=== PATIENT | male | born 1965 | race Caucasian/White ===

== ENCOUNTER 2017-05-06 07:30 | Day surgery (SDC) | payer BC ==
[~2017-05-06 07:30] MED LIST: DIPHENHYDRAMINE HCL 50 MG/ML VIAL ONE; EPINEPHRINE INJ 1 MG/10 ML DISP.SYRIN ONE; FLUMAZENIL INJ 0.5 MG/5 ML VIAL ONE; GLUCAGON,HUMAN RECOMB 1 MG INJ ONE; NALOXONE HCL INJ/PF 0.4 MG/1 ML SDV ONE; ONDANSETRON HCL INJ/PF 4 MG/2 ML SDV ONE
[2017-05-06] MEDS: MIDAZOLAM 2 MG/2 ML INJ ONE ×2 (08:14→08:22)
[2017-05-06] MEDS: FENTANYL CITRATE INJ/PF 100 MCG/2 ML AMPUL ONE ×2 (08:16→08:20)
--- NOTE | 2017-05-06 08:43 | Operative Report ---
Operative Report DATE OF SURGERY: 05/06/17 Operative Report: The risks, benefits and alternatives of the procedure including risks of bleeding, perforation requiring surgery explained to the patient in detail and informed consent was obtained. Patient was taken back to the endoscopy suite and placed in the left, lateral decubital position. Timeout was called. Conscious sedation medications are provided. A rectal examination was done which did not reveal any masses, tears or fissures. An Olympus videoscope is inserted into the patient's rectum. The scope was then carefully advanced all the way to the cecum. The cecum was identified by the usual anatomic landmarks of the ileocecal valve as well as the appendiceal orifice. Photodocumentation was obtained. Prep is adequate in some places. The scope was then sequentially pulled back. Ovarian segments of the colon including the ascending colon, hepatic flexure, transverse colon, splenic flexure, descending colon and finally to the rectosigmoid portions of the colon. Retroflexion maneuver was performed. PREOPERATIVE DIAGNOSIS: Colorectal cancer screening POSTOPERATIVE DIAGNOSIS: No polyps polyps visualized in the areas that could be seen. No mention of the presence or absence of polyps can be made in various that have stool obstructing the lumen. OPERATION: Diagnostic colonoscopy SURGEON: KIMBERLY STARR ANESTHESIA: Moderate Sedation - 4 mg of Versed, 100 mcg of fentanyl. Conscious sedation monitoring for 30 minutes. TISSUE REMOVED OR ALTERED: None. COMPLICATIONS: 9. ESTIMATED BLOOD LOSS: None. INTRAOPERATIVE FINDINGS: As noted above. PROCEDURE: Patient tolerated procedure well. No immediate postprocedure complications are noted. Patient discharged in good condition. Discharge date 05/06/2017. Discharge diet: Regular. Discharge activity: Regular. 2-3 week follow-up to discuss findings. Marsh is a normal screening, the fact that there are some areas of the colon could not be visualized adequately. I would recommend a follow-up colonoscopy in 3 years.
[2017-05-06 09:45] VITALS: BP 137/83
== END 2017-05-06 09:35 | disposition home or self-care (01) ==
LOC: END 07:30
PROVIDERS: ATTEND Internal Medicine Gastroenterology
PROC: 0DJD8ZZ Inspection of Lower Intestinal Tract, Via Natural or Artificial Opening Endoscopic (ICD-10-PCS; principal; 2017-05-06 08:00)
DX: Z12.11 Encounter for screening for malignant neoplasm of colon (principal); E78.5 Hyperlipidemia, unspecified; K21.9 Gastro-esophageal reflux disease without esophagitis; G47.30 Sleep apnea, unspecified; E66.9 Obesity, unspecified; Z88.0 Allergy status to penicillin; Z79.899 Other long term (current) drug therapy; Z88.8 Allergy status to other drugs, medicaments and biological substances; Z68.31 Body mass index [BMI] 31.0-31.9, adult
CPT/HCPCS: 45378; J2250; J3010; J0171; J1200; J1610; J2310; J2405; J3490

== ENCOUNTER 2019-10-17 17:03 | Emergency (ER) | payer BC ==
--- NOTE | 2019-10-17 18:42 | RADIOLOGY REPORT (SQ) ---
EXAM DESCRIPTION: CHEST SINGLE VIEW IMAGES COMPLETED DATE/TIME: 10/17/2019 5:22 pm REASON FOR STUDY: sob COMPARISON: Chest radiograph 02/20/2016 EXAM PARAMETERS: NUMBER OF VIEWS: One view. TECHNIQUE: Single frontal radiographic view of the chest acquired. RADIATION DOSE: NA LIMITATIONS: None. FINDINGS: LUNGS AND PLEURA: No opacities, masses or pneumothorax. No pleural effusion. MEDIASTINUM AND HILAR STRUCTURES: No masses. Contour normal. HEART AND VASCULAR STRUCTURES: Heart normal in size. Normal vasculature. BONES: No acute findings. HARDWARE: None in the chest. OTHER: No other significant finding. IMPRESSION: NO ACUTE RADIOGRAPHIC FINDING IN THE CHEST. TECHNICAL DOCUMENTATION: JOB ID: [id number] [employer]- All Rights Reserved Reading location - IP/workstation name: [email or web address]
[2019-10-17 18:45] LABS: ABSOLUTE EOSINOPHILS # (AUTO) 0.1 10^3/uL (0.0-0.6); ABSOLUTE LYMPHOCYTES (AUTO) 1.7 10^3/uL (0.5-4.7); ABSOLUTE MONOCYTES (AUTO) 1.2 10^3/uL (0.1-1.4); ABSOLUTE NEUT (AUTO) 8.5 10^3/uL (1.7-8.2); BASOPHILS % (AUTO) 0.3 % (0-2); HEMOGLOBIN 16.2 g/dL (13.5-17.0); LYMPHOCYTES % (AUTO) 14.4 % (13-45); MEAN CORPUSCULAR HEMOGLOBIN 30.7 pg (27.0-33.4); MEAN CORPUSCULAR HGB CONC 33.7 g/dL (32.0-36.0); MEAN CORPUSCULAR VOLUME 91 fl (80-97); MONOCYTES % (AUTO) 10.6 % (3-13); PLATELET COUNT 163 10^3/uL (150-450); RED BLOOD COUNT 5.26 10^6/uL (4.35-5.55); RED CELL DISTRIBUTION WIDTH 13.2 % (11.5-14.0); SEGMENTED NEUTROPHILS % (AUTO) 73.7 % (42-78); TOTAL CELLS COUNTED % (AUTO) 100 %; WHITE BLOOD COUNT 11.6 10^3/uL (4.0-10.5)
[2019-10-17 19:15] LABS: ALBUMIN 4.3 g/dL (3.5-5.0); ALKALINE PHOSPHATASE 100 U/L (38-126); ANION GAP 8 (5-19); ASPARTATE AMINO TRANSFERASE 31 U/L (17-59); BILIRUBIN,TOTAL 0.6 mg/dL (0.2-1.3); BLOOD UREA NITROGEN 22 mg/dL (7-20); CALCIUM 9.7 mg/dL (8.4-10.2); CARBON DIOXIDE 27 mmol/L (22-30); CHLORIDE 104 mmol/L (98-107); GLUCOSE 123 mg/dL (75-110); POTASSIUM 4.1 mmol/L (3.6-5.0); TOTAL PROTEIN 7.5 g/dL (6.3-8.2)
--- NOTE | 2019-10-17 19:35 | ER Document Report ---
ED General - General Chief Complaint: Pain All Over Stated Complaint: HEADACHE,FEVER,BODY PAIN,COUGH Time Seen by Provider: 10/17/19 17:43 Primary Care Provider: KAVON LINK PA-C [Primary Care Provider] - Follow up as needed Mode of Arrival: Ambulatory Information source: Patient TRAVEL OUTSIDE OF THE [place] IN LAST 30 DAYS: No - HPI Notes: Patient presents with body aches fever and chills. He states that this started yesterday. It has been intermittent. Nothing makes it better or worse. The body aches radiate throughout his body. They are moderate in intensity and an aching sensation. He states he has had a couple loose stools. No problems with urination. He has had a cough productive of some yellow-green sputum. No rashes. He states he has no known covert exposures except that a person in his office was positive several weeks ago but he did not have any direct contact with this person other than he was in an office that that person was in. He states he was not in the office at the same time as that person however. - Related Data Allergies/Adverse Reactions: bee venom protein (honey bee) Allergy (Intermediate, Verified 05/06/17 07:30) SWELL UP, HIVES Penicillins Allergy (Intermediate, Verified 05/06/17 07:30) SWELL UP, HIVES atorvastatin [From Lipitor] Adverse Reaction (Intermediate, Verified 05/06/17 07:30) muscle aches WASP VENOM Allergy (Intermediate, Uncoded 05/06/17 07:30) SWELL UP ,HIVES Past Medical History - General Information source: Patient - Social History Smoking Status: Never Smoker Frequency of alcohol use: None Drug Abuse: None - He is got fever of 100.2 Family History: Reviewed & Not Pertinent - Past Medical History Cardiac Medical History: Denies: Hx Coronary Artery Disease, Hx Heart Attack, Hx Hypertension Pulmonary Medical History: Denies: Hx Asthma, Hx Bronchitis, Hx COPD, Hx Pneumonia Neurological Medical History: Reports: Hx Migraine. Denies: Hx Cerebrovascular Accident, Hx Seizures Renal/ Medical History: Reports: Hx Kidney Stones GI Medical History: Reports: Hx Gastroesophageal Reflux Disease Musculoskeletal Medical History: Denies Hx Arthritis Psychiatric Medical History: Reports: Hx Depression Past Surgical History: Reports: Hx Cardiac Catheterization, Hx Tonsillectomy - Immunizations Hx Diphtheria, Pertussis, Tetanus Vaccination: Yes Review of Systems - Review of Systems Constitutional: Chills, Fever, Malaise, Weakness Cardiovascular: denies: Chest pain, Palpitations Respiratory: Cough. denies: Short of breath -: Yes All other systems reviewed and negative Physical Exam - Vital signs Vitals: Temp Pulse BP Pulse Ox 98.0 F 72 138/77 H 97 10/17/19 17:09 10/17/19 17:09 10/17/19 17:09 10/17/19 17:09 Interpretation: Normal - General General appearance: Appears well, Alert - HEENT Head: Normocephalic, Atraumatic Eyes: Normal Pupils: PERRL - Respiratory Respiratory status: No respiratory distress Chest status: Nontender Breath sounds: Normal Chest palpation: Normal - Cardiovascular Rhythm: Regular Heart sounds: Normal auscultation Murmur: No - Abdominal Inspection: Normal Distension: No distension Bowel sounds: Normal Tenderness: Nontender Organomegaly: No organomegaly - Back Back: Normal, Nontender - Extremities General upper extremity: Normal inspection, Nontender, Normal color, Normal ROM, Normal temperature General lower extremity: Normal inspection, Nontender, Normal color, Normal ROM, Normal temperature, Normal weight bearing. No: Sary's sign - Neurological Neuro grossly intact: Yes Cognition: Normal Orientation: AAOx4 [place] Coma Scale Eye Opening: Spontaneous Nicolas Coma Scale Verbal: Oriented [place] Coma Scale Motor: Obeys Commands [place] Coma Scale Total: 15 Speech: Normal Motor strength normal: LUE, RUE, LLE, RLE Sensory: Normal - Psychological Associated symptoms: Normal affect, Normal mood - Skin Skin Temperature: Warm Skin Moisture: Dry Skin Color: Normal Course - Re-evaluation Re-evalutation: 10/17/19 19:34 Patient presents with concerns for COVID. He states that his boss tested positive and he has been on the same office as his boss. He states he was not at the same time as his boss but he has been in the same office that his boss was in. He states he has fevers chills and a productive cough with body aches. Patient has had a COVID test sent off. The rest of his evaluation including laboratories and x-rays are unremarkable for another source of infection. He does appear to have a viral syndrome and at this time I have instructed the patient that it is presumed COVID until his test returns. He has been inst ructed to quarantine himself until his results have returned in 2 to 3 days. Patient was given instructions concerning how to practice home isolation. 10/17/19 19:40 - Vital Signs Vital signs: Temp Pulse Resp BP Pulse Ox 98.0 F 72 138/77 H 97 10/17/19 17:22 10/17/19 17:09 10/17/19 17:09 10/17/19 17:09 - Laboratory Result Diagrams: 10/17/19 18:25 10/17/19 18:25 Laboratory results interpreted by me: 10/17/19 10/17/19 18:25 18:25 WBC 11.6 H Absolute Neuts (auto) 8.5 H BUN 22 H Creatinine 1.29 H Est GFR (MDRD) Non-Af 58 L Glucose 123 H - Diagnostic Test Radiology reviewed: Image reviewed, Reports reviewed Discharge - Discharge Clinical Impression: Viral syndrome, Suspected COVID-19 virus infection Condition: Stable Disposition: HOME, SELF-CARE Instructions: Oral Narcotic Medication ([facility]), Viral Syndrome ([facility]) Additional Instructions: Please quarantine yourself until the results of your COVID test have returned. Please review handout given to you and read CDC guidelines. Prescriptions: Hydrocodone/Acetaminophen [[place] 5-325 mg Tablet] 1 tab PO Q6 PRN 3 Days #10 tablet PRN Reason: Forms: Return to Work Referrals: KAVON LINK PA-C [Primary Care Provider] - Follow up in 3-5 days (Please contact Kavon Link to arrange follow up)
[2019-10-17 20:05] VITALS: BP 141/75
== END 2019-10-17 20:05 | disposition home or self-care (01) ==
LOC: ER 17:03
DX: B34.9 Viral infection, unspecified (principal); R51 Headache; R50.9 Fever, unspecified; R19.4 Change in bowel habit; R05 Cough; R53.81 Other malaise; R53.1 Weakness; Z20.828 Contact with and (suspected) exposure to other viral communicable diseases; Z86.69 Personal history of other diseases of the nervous system and sense organs; Z91.030 Bee allergy status; Z88.0 Allergy status to penicillin; Z91.038 Other insect allergy status
CPT/HCPCS: 99283; 36415; 85025; 87635; 80053; 71045; C9803

== ENCOUNTER 2020-05-14 08:22 | Emergency (ER) | payer BC ==
--- NOTE | 2020-05-14 09:57 | ER Document Report ---
ED General - General Chief Complaint: Cough Stated Complaint: FEVER SHORTNESS OF BREATH COUGH Time Seen by Provider: 05/14/20 09:49 Primary Care Provider: KAVON LINK PA-C [Primary Care Provider] - Follow up as needed Mode of Arrival: Ambulatory Information source: Patient TRAVEL OUTSIDE OF THE [place] IN LAST 30 DAYS: No - HPI Notes: 54-year-old male non-smoker comes in with a 48-hour history of cough, shortness of breath, fever, and malaise. Was not exposed to a known Covid positive individual about 10 days ago. States that person had already recovered and return to work however. No other travel outside the area. No known exposures. No history of chronic lung disease. No history of heart failure. Otherwise in his usual state of health. [place] any chest pain or palpitations. No recent or unexplained weight gain. No edema. - Related Data Allergies/Adverse Reactions: bee venom protein (honey bee) Allergy (Intermediate, Verified 05/06/17 07:30) SWELL UP, HIVES Penicillins Allergy (Intermediate, Verified 05/06/17 07:30) SWELL UP, HIVES atorvastatin [From Lipitor] Adverse Reaction (Intermediate, Verified 05/06/17 07:30) muscle aches WASP VENOM Allergy (Intermediate, Uncoded 05/06/17 07:30) SWELL UP ,HIVES Past Medical History - General Information source: Patient - Social History Smoking Status: Never Smoker Frequency of alcohol use: Occasional Family History: Reviewed & Not Pertinent - Medical History Medical History: Other Notes: Past medical history as documented in the electronic health record is reviewed. - Past Medical History Cardiac Medical History: Denies: Hx Coronary Artery Disease, Hx Heart Attack, Hx Hypertension Pulmonary Medical History: Denies: Hx Asthma, Hx Bronchitis, Hx COPD, Hx Pneumonia Neurological Medical History: Reports: Hx Migraine. Denies: Hx Cerebrovascular Accident, Hx Seizures Renal/ Medical History: Reports: Hx Kidney Stones GI Medical History: Reports: Hx Gastroesophageal Reflux Disease Musculoskeletal Medical History: Denies Hx Arthritis Psychiatric Medical History: Reports: Hx Depression Past Surgical History: Reports: Hx Cardiac Catheterization, Hx Tonsillectomy - Immunizations Hx Diphtheria, Pertussis, Tetanus Vaccination: Yes Review of Systems - Review of Systems Notes: All other systems reviewed and are negative or noncontributory except as noted the present illness. Physical Exam - Vital signs Vitals: Temp Pulse Resp BP Pulse Ox 98.3 F 70 18 125/58 L 99 05/14/20 08:57 05/14/20 08:57 05/14/20 08:57 05/14/20 08:57 05/14/20 08:57 - Notes Notes: General: Well-developed obese male no acute distress. Vital signs and nursing chief complaint are reviewed. ENT: Grossly normal to inspection. Neck: Supple nontender no adenopathy. Lungs: Clear to auscultation all monique. Heart: Regular rate and rhythm no murmur rub or gallop. Abdomen: Obese soft nontender no masses or organomegaly. Extremities: Without clubbing cyanosis or edema. Course - Re-evaluation Re-evalutation: 05/14/20 09:59 Patient will be swabbed for Covid. Chest x-ray and blood count will be checked. Plan is discharge home as his vital signs are quite stable and his oxygen level and respiratory rate are normal. - Vital Signs Vital signs: Temp Pulse Resp BP Pulse Ox 98.3 F 70 18 125/58 L 99 05/14/20 08:57 05/14/20 08:57 05/14/20 08:57 05/14/20 08:57 05/14/20 08:57 Discharge - Discharge Referrals: KAVON LINK PA-C [Primary Care Provider] - Follow up as needed
--- NOTE | 2020-05-14 10:26 | ER Document Report ---
ED Respiratory Problem - General Chief Complaint: Cough Stated Complaint: FEVER SHORTNESS OF BREATH COUGH Time Seen by Provider: 05/14/20 09:49 Mode of Arrival: Ambulatory Information source: Patient Notes: 54-year-old male presents to ED for complaint of cough congestion sore throat fever intermittently for the last couple days of 101.5-99.5. He states that he has had body aches rundown feeling for the last several days. He states this morning when he went to eat breakfast he had no taste. He states he is concerned that he might have Covid. He states he just feels miserable right no w. He is alert oriented respirations regular nonlabored speaking in full sentences. Will get him tested for the coronavirus. The patient was evaluated during the global Covid 19 pandemic, and that diagnosis was suspected/considered upon their initial presentation. Their evaluation, treatment and testing was consistent with current guidelines for patients who present with complaints or symptoms that may be related to Covid 19. Constitutional: Negative for fever. HENT: Changes smell and taste Eyes: Negative for visual changes. Cardiovascular: Negative for chest pain. Respiratory: Short of breath cough and congestion Gastrointestinal: Negative for abdominal pain, vomiting or diarrhea. Genitourinary: Negative for dysuria. Musculoskeletal: Body aches Skin: Negative for rash. Neurological: Negative for headaches, weakness or numbness. 10 point ROS negative except as marked above and in HPI. VITAL SIGNS: Within normal limits. GENERAL: No acute distress, non-toxic appearance. HEAD: Normal with no signs of head trauma. EYES: PERRLA, EOMI, conjunctiva normal, no discharge. EARS: Hearing grossly intact. NOSE: Rhinorrhea swollen turbinates THROAT: Oropharynx is normal. NECK: Normal range of motion, no tenderness, supple, no lymphadenopathy, No adenopathy, no JVD. CHEST: Clear breath sounds bilaterally. No wheezes, rales, or rhonchi. CARDIAC: Regular rate and rhythm. S1 and S2, without murmurs, gallops, or rubs. VASCULAR: No Edema. Peripheral pulses normal and equal in all extremities. ABDOMEN: Normal and soft with no tenderness, no masses or pulsatile masses. GASTROINTESTINAL: Bowel sounds normal GENITOURINARY: Normal, No tenderness LYMPATHTIC: No lymphadenopathy noted. MUSCULOSKELETAL: Good range of motion of all major joints. Extremities without clubbing, cyanosis or edema. NEUROLOGICAL: Alert and oriented x 3. No focal sensory or strength deficits. Speech normal. Follows commands appropriately. PSYCHIATRIC: Normal Affect, judgement and mood. SKIN: Normal appearance with no rashes or lesions. TRAVEL OUTSIDE OF THE [place] IN LAST 30 DAYS: No - HPI Patient complains to provider of: Cough Onset: Last week Duration: Continuous Initiating Event: URI Quality of pain: Achy Severity: Moderate Pain Level: 2 Cough: Nonproductive Sputum amount: None Associated symptoms: Congestion, Cough, Fever, PND, Runny nose, Sinus pain/pressure, Short of breath, Sore Throat Similar symptoms previously: Yes Recently seen / treated by doctor: No - Related Data Allergies/Adverse Reactions: bee venom protein (honey bee) Allergy (Intermediate, Verified 05/06/17 07:30) SWELL UP, HIVES Penicillins Allergy (Intermediate, Verified 05/06/17 07:30) SWELL UP, HIVES atorvastatin [From Lipitor] Adverse Reaction (Intermediate, Verified 05/06/17 07:30) muscle aches WASP VENOM Allergy (Intermediate, Uncoded 05/06/17 07:30) SWELL UP ,HIVES Past Medical History - General Information source: Patient - Social History Smoking Status: Never Smoker Frequency of alcohol use: Rare Drug Abuse: None Lives with: Family Family History: Reviewed & Not Pertinent Patient has suicidal ideation: No Patient has homicidal ideation: No - Medical History Medical History: Other - Past Medical History Cardiac Medical History: Reports: None Pulmonary Medical History: Reports: None EENT Medical History: Reports: None Neurological Medical History: Reports: Hx Migraine Endocrine Medical History: Reports: None Renal/ Medical History: Reports: Hx Kidney Stones Malignancy Medical History: Reports None GI Medical History: Reports: Hx Gastroesophageal Reflux Disease Musculoskeletal Medical History: Reports None Skin Medical History: Reports None Psychiatric Medical History: Reports: Hx Depression Traumatic Medical History: Reports: None Infectious Medical History: Reports: None Past Surgical History: Reports: Hx Adenoidectomy, Hx Cardiac Catheterization, Hx Tonsillectomy - Immunizations Hx Diphtheria, Pertussis, Tetanus Vaccination: Yes - 2018 Physical Exam - Vital signs Vitals: Temp Pulse Resp BP Pulse Ox 98.3 F 70 18 125/58 L 99 05/14/20 08:57 05/14/20 08:57 05/14/20 08:57 05/14/20 08:57 05/14/20 08:57 Course - Vital Signs Vital signs: Temp Pulse Resp BP Pulse Ox 98.2 F 66 18 155/85 H 95 05/14/20 12:04 05/14/20 12:04 05/14/20 12:04 05/14/20 12:04 05/14/20 12:04 - Laboratory Results Critical Laboratory Results Reviewed: No Critical Results - Radiology Results Critical Radiology Results Reviewed: No Critical Results Discharge - Discharge Clinical Impression: Person under investigation for COVID-19, Flu-like symptoms Condition: Stable Disposition: HOME, SELF-CARE Instructions: COVID-19 Guidance for Persons Under Investigation Additional Instructions: UPPER RESPIRATORY ILLNESS: You have a viral infection of the respiratory passages -- a "cold." This common infection causes nasal congestion, drainage, and often sore throat and cough. It is highly contagious. The disease usually lasts about 10 to 14 days. There is no "cure" for the viral infection -- it must run its course. If there is a complication, such as bacterial infection in the nose, sinuses, middle ear, or bronchial tubes, antibiotics may be required. The antibiotics won't affect the virus. Drink plenty of fluids. A humidifier may help. An expectorant medication or decongestant may make you more comfortable. Use acetaminophen or ibuprofen for fever or aches. See the doctor if fever persists over two days, if there is any significant worsening of your symptoms, or if you simply fail to improve as expected. You could also use Flonase which is [id number] 1 spray each nostril twice a day. You could also use salt soda solution gargles. These will help to remove the drainage from the back your throat. Chloraseptic spray was [id number] that will also help with your sore throat. Salt and soda solution gargle 1 quart of water 1 tablespoon of salt 1 teaspoon of baking soda Mixed 3 ingredients together and boil for 1 minute Placed in a covered quart jar Use 1/2 ounce of cold solution to gargle 3 times a day USE OF ACETAMINOPHEN (Tylenol): Acetaminophen may be taken for pain relief or fever control. It's much safer than aspirin, offering a wider range of "safe" dosages. It is safe during . Some brand names are Tylenol, Panadol, Datril, Anacin 3, Tempra, and Liquiprin. Acetaminophen can be repeated every four hours. The following are maximum recommended dosages: >89 pounds or adults 650 mg to 900 mg Acetaminophen can be repeated every four hours. Maximum dose not to exceed 4000 mg a day. Patient was provided with discharge information including: As a person under investigation for Covid 19, the [facility], division of public health advises you to adhere to the following guidance until your test results are reported to you. If your test result is positive, you will receive additional information from your provider and your local health department at that time. Remain at home until you are cleared by the health provider or public health authorities. Keep a log of visitors to your home, notify any visitors to your home of your isolation status. If you plan to move to a new address or leave the county, notify the local health department in your County. Call your doctor or seek care if you have an urgent medical need. Before seeking medical care, call ahead to get instructions from the provider before arriving at the medical office clinic or hospital. Notify them that you are being tested for the virus that causes Covid 19 so that arrangements can be made, as necessary, to prevent transmission to others in the healthcare setting. Next, notify the local health department in your county. If a medical emergency arises and you need to call 911, inform the first responders that you are being tested for the virus that causes Covid 19. Next, notify the local health department in your county.
--- NOTE | 2020-05-14 10:46 | RADIOLOGY REPORT (SQ) ---
EXAM DESCRIPTION: CHEST SINGLE VIEW IMAGES COMPLETED DATE/TIME: 05/14/2020 10:21 am REASON FOR STUDY: Cough, dyspnea COMPARISON: 10/17/2019 EXAM PARAMETERS: NUMBER OF VIEWS: One view. TECHNIQUE: Single frontal radiographic view of the chest acquired. RADIATION DOSE: NA LIMITATIONS: None. FINDINGS: LUNGS AND PLEURA: No opacities, masses or pneumothorax. No pleural effusion. MEDIASTINUM AND HILAR STRUCTURES: No masses. Contour normal. HEART AND VASCULAR STRUCTURES: Heart normal in size. Normal vasculature. BONES: No acute findings. HARDWARE: None in the chest. OTHER: No other significant finding. IMPRESSION: NO ACUTE RADIOGRAPHIC FINDING IN THE CHEST. TECHNICAL DOCUMENTATION: JOB ID: [id number] 2010 [employer]- All Rights Reserved Reading location - IP/workstation name: [email or web address]
[2020-05-14 11:38] LABS: A TYPE INFLUENZA AG NEGATIVE (NEGATIVE); B INFLUENZA AG NEGATIVE (NEGATIVE)
[2020-05-14 12:05] VITALS: BP 155/85
== END 2020-05-14 12:05 | disposition home or self-care (01) ==
LOC: ER 08:22
DX: R05 Cough (principal); J02.9 Acute pharyngitis, unspecified; R50.9 Fever, unspecified; R43.9 Unspecified disturbances of smell and taste; R06.02 Shortness of breath; R09.89 Other specified symptoms and signs involving the circulatory and respiratory systems; J34.89 Other specified disorders of nose and nasal sinuses; R09.82 Postnasal drip; Z91.030 Bee allergy status; Z91.038 Other insect allergy status; Z88.0 Allergy status to penicillin; Z20.822 Contact with and (suspected) exposure to COVID-19
CPT/HCPCS: 99284; 87070; 87880; 87804; 71045; U0003; C9803; 87635